=== PATIENT | female | born 1955 | race Caucasian/White ===

== ENCOUNTER 2020-02-17 07:02 | Emergency (ER) | payer BC ==
[2020-02-17 07:17] VITALS: TEMP 98
--- NOTE | 2020-02-17 07:35 | PDOC ---
Attending Attestation - Resident Resident Name: Osmany Chou - HPI HPI: 02/17/20 09:20 Pt presents to the ED complaining of R sided sharp pain that is located in her axilla. Denies shortness of breath. pain is pleuritic. no risk factors for PE. No fever or cough. No urinary complaints. 02/17/20 09:21 - Physicial Exam PE: 02/17/20 09:22 Agree with resident exam. Gen: alert, NAD CV rrr no murmurs. Pulm: cTA b/l abdomen soft, non tender, non distended. + point tenderness in axilla. - Medical Decision Making 02/17/20 09:23 Pt presents to the ED complaining of pleuritic pain localized to the R axilla. EKG and labs are within normal limits. Pain resolved with tylenol. No concern for PE or ACS. Will discharge home with instructions to follow up with PCP. Discharge - Discharge Information Problems reviewed: Yes Clinical Impression/Diagnosis: Hypertension Qualifiers: Hypertension type: unspecified Qualified Code(s): I10 - Essential (primary) hypertension Back pain Qualifiers: Back pain location: back pain in other location Chronicity: unspecified Qualified Code(s): M54.89 - Other dorsalgia Condition: Stable Disposition: HOME - Follow up/Referral - Patient Discharge Instructions Patient Printed Discharge Instructions: DI for High Blood Pressure, DI for Musculoskeletal Pain Additional Instructions: You were seen in the ER for back pain, high blood pressure. Your bloodwork was normal, and symptoms improved with medication. Follow up with your primary care physician as soon as possible, in the next 5-7 days. Return to the ER if you develop chest pain, vision changes, difficulty walking, high fevers, or difficulty breathing. - Post Discharge Activity
--- NOTE | 2020-02-17 07:37 | PDOC ---
History of Present Illness - General Chief Complaint: Blood Pressure Problem Stated Complaint: BP PROBLEM Time Seen by Provider: 02/17/20 07:27 History Source: Patient - History of Present Illness Initial Comments: 02/17/20 07:31 64F w/hx HTN, depression p/w one day of upper back pain, HTN. She reports that the back pain began last night on her R side to her R axilla. She reports noticing her BP was elevated to the 180s systolic yesterday. She recently presented to her PCP, no recent change to her medications. HCTZ for BP control. She denies any chest pain, sob, weakness, confusion, vision changes, difficulty ambulating, or lightheadedness. NKDA. Past History - Medical History Allergies/Adverse Reactions: Allergies Allergy/AdvReac Type Severity Reaction Status Date / Time No Known Allergies Allergy Verified 02/17/20 07:28 Home Medications: Ambulatory Orders Bisoprolol/Hydrochlorothiazide [Bisoprolol-Hctz 5-6.25 mg Tab] 1 each PO DAILY 02/17/20 Sertraline HCl 50 mg PO DAILY 02/17/20 COPD: No HTN: Yes Hypercholesterolemia: Yes - Psycho-Social/Smoking History Smoking Status: No Smoking History: Never smoked Have you smoked in the past 12 months: No Number of Cigarettes Smoked Daily: 0 - Substance Abuse Hx (Audit-C & DAST Scrn) How often the patient has a drink containing alcohol: Never Score: In Men: 4 or > Positive; In Women: 3 or > Positive: 0 Screen Result (Pos requires Nsg. Audit-10AR): Negative In the last yr the pt used illegal drug/Rx for NonMed reason: No Score: Yes response is considered Positive: 0 Screen Result (Positive result requires Nsg. DAST-10): Negative Review of Systems - Review of Systems Able to Perform ROS?: Yes Comments:: 02/17/20 07:30 GENERAL/CONSTITUTIONAL: No fever or chills. No weakness. HEAD, EYES, EARS, NOSE AND THROAT: No change in vision. No ear pain or discharge. No sore throat. CARDIOVASCULAR: No chest pain or shortness of breath RESPIRATORY: No cough, wheezing, or hemoptysis. GASTROINTESTINAL: Abdominal discomfort. No nausea, vomiting, diarrhea or constipation. GENITOURINARY: No dysuria, frequency, or change in urination. MUSCULOSKELETAL: Back pain. No other joint or muscle swelling or pain. No neck or back pain. SKIN: No rash NEUROLOGIC: No headache, vertigo, loss of consciousness, or change in strength/sensation. ENDOCRINE: No increased thirst. No abnormal weight change HEMATOLOGIC/LYMPHATIC: No anemia, easy bleeding, or history of blood clots. ALLERGIC/IMMUNOLOGIC: No hives or skin allergy. *Physical Exam - Vital Signs Last Vital Signs Temp Pulse Resp BP Pulse Ox 98 F 88 20 177/79 H 98 02/17/20 07:06 02/17/20 07:06 02/17/20 07:06 02/17/20 07:06 02/17/20 07:06 - Physical Exam 02/17/20 07:30 GENERAL: Awake, alert, and fully oriented, in no acute distress HEAD: No signs of trauma, normocephalic, atraumatic EYES: PERRLA, EOMI, sclera anicteric, conjunctiva clear ENT: Auricles normal inspection, hearing grossly normal, nares patent, orophar ynx clear without exudates. Moist mucosa NECK: Normal ROM, supple, no lymphadenopathy, JVD, or masses LUNGS: No distress, speaks full sentences, clear to auscultation bilaterally HEART: Regular rate and rhythm, normal S1 and S2, no murmurs, rubs or gallops, peripheral pulses normal and equal bilaterally. ABDOMEN: Soft, nontender, normoactive bowel sounds. No guarding, no rebound. No masses EXTREMITIES : Normal inspection, Normal range of motion, no edema. No clubbing or cyanosis NEUROLOGICAL: Cranial nerves II through XII grossly intact. Normal speech, normal gait, no focal sensorimotor deficits SKIN: Warm, Dry, normal turgor, no rashes or lesions noted ED Treatment Course - LABORATORY CBC & Chemistry Diagram: 02/17/20 07:39 02/17/20 07:39 Medical Decision Making - Medical Decision Making 02/17/20 07:31 64F w/hx HTN, depression p/w one day of HTN, upper back pain. Ddx atypical ACS, MSK pain. Dissection unlikely given focal area of rib tenderness. Plan: EKG CXR CBC CMP Cardiac profile Acetaminophen Maalox Dispo: Discharge 02/17/20 08:48 CBC, CMP, trop - wnl On reassessment, patient reports resolution of symptoms. Plan for discharge with close PCP follow up. Discharge - Discharge Information Problems reviewed: Yes Clinical Impression/Diagnosis: Hypertension Qualifiers: Hypertension type: unspecified Qualified Code(s): I10 - Essential (primary) hypertension Back pain Qualifiers: Back pain location: back pain in other location Chronicity: unspecified Qualified Code(s): M54.89 - Other dorsalgia Condition: Stable Disposition: HOME - Admission No - Follow up/Referral - Patient Discharge Instructions Patient Printed Discharge Instructions: DI for High Blood Pressure, DI for Musculoskeletal Pain Additional Instructions: You were seen in the ER for back pain, high blood pressure. Your bloodwork was normal, and symptoms improved with medication. Follow up with your primary care physician as soon as possible, in the next 5-7 days. Return to the ER if you develop chest pain, vision changes, difficulty walking, high fevers, or difficulty breathing. - Post Discharge Activity
[2020-02-17] MEDS ORDERED: LACTATED RINGERS SOLUTION 1000 ML INFUS.BAG IV ONE (07:46)
[2020-02-17] MEDS ORDERED: ACETAMINOPHEN 1000 MG/100 ML VIAL (NON FORMULARY) IVPB ONE (07:46)
[2020-02-17] MEDS ORDERED: MAG HYDROX/AL HYDROX/SIMETH -MYLANTA- ORAL SUSPENSION PO ONE (07:47)
[2020-02-17] MEDS ORDERED: ACETAMINOPHEN 325 MG TABLET (FP) PO ONE (07:49)
[2020-02-17 08:22] LABS: BASO % 0.1 % (0-2.0); HEMATOCRIT 36.6 % (32.4-45.2); HEMOGLOBIN 12.3 GM/dL (10.7-15.3); LYMPH % 14.1 % (8-40); MCH 30.6 pg (25.7-33.7); MCHC 33.7 g/dl (32.0-36.0); MEAN PLT VOLUME 9.1 fl (7.5-11.1); MONO % 7.3 % (3.8-10.2); NEUT % 78.5 % (42.8-82.8); PLATELET COUNT 226 K/MM3 (134-434); RBC 4.02 M/mm3 (3.60-5.2); RDW 13.4 % (11.6-15.6); WHITE BLOOD COUNT 7.9 K/mm3 (4.0-10.0)
[2020-02-17 08:30] LABS: INR 0.93 (0.83-1.09)
[2020-02-17 08:32] LABS: ACTIVATED PTT 30.7 SECONDS (25.2-36.5)
[2020-02-17] MEDS ORDERED: ACETAMINOPHEN 325 MG TABLET (FP) ONE (08:41)
[2020-02-17 08:42] LABS: ALBUMIN 4.3 g/dl (3.4-5.0); ALK PHOS 75 U/L (45-117); ANION GAP 7 MMOL/L (8-16); BILIRUBIN,TOTAL 0.4 mg/dL (0.2-1); CALCIUM 9.3 mg/dL (8.5-10.1); CHLORIDE 101 mmol/L (98-107); CO2 29 mmol/L (21-32); GLUCOSE,RANDOM 107 mg/dL (74-106); POTASSIUM 3.7 mmol/L (3.5-5.1); SGOT/AST 24 U/L (15-37); SGPT/ALT 24 U/L (13-61); SODIUM 138 mmol/L (136-145); TOT PROT 7.6 g/dl (6.4-8.2)
[2020-02-17] MEDS ORDERED: MAG HYDROX/AL HYDROX/SIMETH 30 ML UNIT-DOSE CUP ONE (08:42)
[2020-02-17] MEDS ORDERED: LIDOCAINE 5% TOPICAL PATCH TP ONE (08:49)
[2020-02-17] MEDS ORDERED: LIDOCAINE 5% TOPICAL PATCH ONE (08:58)
[2020-02-17 09:14] VITALS: BP 137/80; PULSE 66
--- NOTE | 2020-02-17 14:04 | EKG ---
Test Reason : Blood Pressure : / mmHG Vent. Rate : 060 BPM Atrial Rate : 060 BPM P-R Int : 164 ms QRS Dur : 088 ms QT Int : 448 ms P-R-T Axes : 061 045 044 degrees QTc Int : 448 ms NORMAL SINUS RHYTHM NONSPECIFIC ST ABNORMALITY ABNORMAL ECG WHEN COMPARED WITH ECG OF 27-FEB-2014 15:50, NO SIGNIFICANT CHANGE WAS FOUND Confirmed by BEULAH BURNHAM MD ([id number]) on 02/17/2020 2:03:58 PM Referred By: Confirmed By:BEULAH BURNHAM MD
[2020-02-17] MEDS ORDERED: LIDOCAINE PATCH REMOVAL MC SCH (22:00)
== END 2020-02-17 09:14 | disposition home or self-care (01) ==
LOC: JER 07:02
DX: M54.89 Other dorsalgia (principal); I10 Essential (primary) hypertension
CPT/HCPCS: 36415; 71045-TC-FY; 80053; 82550; 82553; 84484; 85025; 85610; 85730; 93005; 93010; 99285-25

== ENCOUNTER 2021-11-11 20:11 | Emergency (ER) | payer BC, OTHER ==
[2021-11-11 20:17] VITALS: TEMP 98.1; BMI 30.2
[2021-11-11] MEDS ORDERED: ACETAMINOPHEN 1000 MG/100 ML BAG IVPB ONE (22:25)
[2021-11-11] MEDS ORDERED: ACETAMINOPHEN INJECTION 100 ML IVPB ONE (22:41)
[2021-11-11 23:24] LABS: BASO % 0.5 % (0-2.0); HEMATOCRIT 39.3 % (32.4-45.2); HEMOGLOBIN 13.3 GM/dL (10.7-15.3); LYMPH % 10.3 % (8-40); MCH 30.3 pg (25.7-33.7); MCHC 33.8 g/dl (32.0-36.0); MEAN CELL VOLUME 89.7 fl (80-96); MEAN PLT VOLUME 8.8 fl (7.5-11.1); MONO % 3.8 % (3.8-10.2); NEUT % 85.4 % (42.8-82.8); PLATELET COUNT 243 10^3/uL (134-434); RBC 4.37 M/mm3 (3.60-5.2); RDW 13.7 % (11.6-15.6)
[2021-11-11 23:38] LABS: CALCIUM 9.6 mg/dL (8.5-10.1)
[2021-11-11 23:39] LABS: ALBUMIN 4.4 g/dl (3.4-5.0); BLOOD UREA NITROGEN 14.8 mg/dL (7-18)
[2021-11-11 23:42] LABS: CREATININE 1.1 mg/dL (0.55-1.3)
[2021-11-11 23:43] LABS: TOT PROT 8.3 g/dl (6.4-8.2)
[2021-11-11 23:44] LABS: BILIRUBIN,TOTAL 0.7 mg/dL (0.2-1)
[2021-11-12] MEDS ORDERED: ONDANSETRON 4 MG/2 ML VIAL IVPUSH ONE ×2 (00:15→01:59)
[2021-11-12] MEDS ORDERED: ONDANSETRON 4 MG/2 ML VIAL ONE ×2 (00:20→02:00)
[2021-11-12 00:27] LABS: EPI CELLS 10 /uL (0-25.1); HYALINE CASTS 5 /uL (0-3.1); URINE APPEARANCE CLEAR; URINE BACTERIA 13 /uL (0-1359); URINE BILIRUBIN NEGATIVE (NEGATIVE); URINE COLOR YELLOW; URINE GLUCOSE (UA) NEGATIVE (NEGATIVE); URINE KETONE 3+ (NEGATIVE); URINE LEUK ESTERASE NEGATIVE (NEGATIVE); URINE NITRITE NEGATIVE (NEGATIVE); URINE PROTEIN 1+ (NEGATIVE); URINE RBC 31 /uL (0-23.9); URINE UROBILINOGEN 0.2 mg/dL (0.2-1.0)
[2021-11-12] MEDS ORDERED: KETOROLAC TROMETHAMINE 15 MG/ML VIAL IVPUSH ONE (01:13)
[2021-11-12] MEDS ORDERED: KETOROLAC TROMETHAMINE 30 MG/1 ML VIAL ONE (01:14)
[2021-11-12 03:25] VITALS: BP 133/77; PULSE 71
== END 2021-11-12 03:57 | disposition home or self-care (01) ==
LOC: JER 20:11
DX: R11.0 Nausea (principal)
CPT/HCPCS: 36415; 71045-TC-FY; 74176-TC; 80053; 81003; 84484; 85025; 93005; 93010; 99285-25

== ENCOUNTER 2023-05-16 14:00 | Emergency (ER) | payer BC ==
[2023-05-16 14:15] VITALS: BP 150/76; PULSE 72; RESP 18; TEMP 99.1; BMI 30.2
[2023-05-16] MEDS ORDERED: IBUPROFEN 400 MG TABLET (FP) PO ONE ×2 (15:27→15:33)
[2023-05-16] MEDS ORDERED: BENZOCAINE/MENTH/CETYLPYRD CL 1 EACH LOZENGE MM ONE (15:27)
[2023-05-16] MEDS ORDERED: guaiFENesin 200 MG/10 ML 10 ML UNIT-DOSE CUPS PO ONE (15:32)
[2023-05-16] MEDS ORDERED: guaiFENesin/D-METHORPHAN HB 10 ML UNIT-DOSE CUPS ONE (15:33)
== END 2023-05-16 16:23 | disposition home or self-care (01) ==
LOC: JERFT 14:00
DX: R05.9 Cough, unspecified (principal); J02.9 Acute pharyngitis, unspecified; R51.9 Headache, unspecified; H92.02 Otalgia, left ear; R09.81 Nasal congestion; J34.89 Other specified disorders of nose and nasal sinuses; R50.9 Fever, unspecified; R61 Generalized hyperhidrosis; J06.9 Acute upper respiratory infection, unspecified; H66.92 Otitis media, unspecified, left ear; Z20.822 Contact with and (suspected) exposure to COVID-19
CPT/HCPCS: 0241U-QW; 99283-25

== ENCOUNTER 2023-05-18 03:52 | Emergency (ER) | payer BC ==
[2023-05-18 04:03] VITALS: BP 151/77; PULSE 86; RESP 18; TEMP 98.6; BMI 30.2
[2023-05-18] MEDS ORDERED: METOCLOPRAMIDE HCL INJECTION 10 MG/2 ML VIAL IVPUSH ONE (04:39)
[2023-05-18] MEDS ORDERED: ACETAMINOPHEN 1000 MG/100 ML BAG IVPB ONE (04:39)
[2023-05-18] MEDS ORDERED: LACTATED RINGERS SOLUTION 1000 ML INFUS.BAG IV ONE (04:39)
[2023-05-18] MEDS ORDERED: ACETAMINOPHEN INJECTION 100 ML IVPB ONE (04:57)
[2023-05-18] MEDS ORDERED: METOCLOPRAMIDE HCL INJECTION 10 MG/2 ML VIAL ONE (04:58)
[2023-05-18 05:46] LABS: RDW 13.6 % (11.6-15.6)
[2023-05-18 05:58] LABS: HEMOGLOBIN 10.8 GM/dL (10.7-15.3); MCH 30.7 pg (25.7-33.7); MCHC 33.8 g/dl (32.0-36.0); MEAN CELL VOLUME 90.9 fl (80-96); MEAN PLT VOLUME 8.3 fl (7.5-11.1); PLATELET COUNT 284 10^3/uL (134-434); RBC 3.52 M/mm3 (3.60-5.2); WHITE BLOOD COUNT 6.5 K/mm3 (4.0-10.0)
[2023-05-18 06:03] LABS: POTASSIUM 3.5 mmol/L (3.5-5.1)
[2023-05-18 06:05] LABS: ALBUMIN 3.4 g/dl (3.4-5.0); BLOOD UREA NITROGEN 11.8 mg/dL (7-18); CALCIUM 9.3 mg/dL (8.5-10.1)
[2023-05-18 06:10] LABS: TOT PROT 7.1 g/dl (6.4-8.2)
[2023-05-18] MEDS ORDERED: KETOROLAC TROMETHAMINE 30 MG/1 ML VIAL IM ONE (06:29)
[2023-05-18] MEDS ORDERED: KETOROLAC TROMETHAMINE 30 MG/1 ML VIAL ONE (06:32)
[2023-05-18 06:49] LABS: ANISOCYTOSIS 0; HELMET CELLS 0; HOWELL-JOLLY BODIES 0; MACROCYTOSIS 0; OVALOCYTE 0; ROULEAU 0; SICKELED CELLS 0; TARGET CELLS 0; TEAR DROP CELLS 0; TOXIC GRANULATION 0
[2023-05-18 06:51] LABS: BILIRUBIN,TOTAL 0.3 mg/dL (0.2-1)
[2023-05-18] MEDS ORDERED: guaiFENesin/D-METHORPHAN HB 10 ML UNIT-DOSE CUPS ONE (06:51)
[2023-05-18] MEDS ORDERED: guaiFENesin/D-METHORPHAN HB 10 ML UNIT-DOSE CUPS PO ONE (06:53)
== END 2023-05-18 06:57 | disposition home or self-care (01) ==
LOC: JER 03:52
PROC: 3E033NZ Introduction of Analgesics, Hypnotics, Sedatives into Peripheral Vein, Percutaneous Approach (ICD-10-PCS; principal; 2023-05-18)
PROC: 3E033GC Introduction of Other Therapeutic Substance into Peripheral Vein, Percutaneous Approach (ICD-10-PCS; 2023-05-18)
PROC: 3E0233Z Introduction of Anti-inflammatory into Muscle, Percutaneous Approach (ICD-10-PCS; 2023-05-18)
DX: R05.9 Cough, unspecified (principal); H92.02 Otalgia, left ear; R51.9 Headache, unspecified; Z20.822 Contact with and (suspected) exposure to COVID-19
CPT/HCPCS: 0241U-QW; 36415; 71046-TC-FY; 80053; 85025; 99284-25